=== PATIENT | male | born 1985 | race African-American/Black ===

== ENCOUNTER 2018-04-20 17:28 | Emergency (ER) | payer SELFPAY, OTHER ==
[~2018-04-20] VITALS: Ht 180.3 cm; Wt 93.0 kg
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
[2018-04-20 17:40] VITALS: BP 124/68
[2018-04-20] MEDS ORDERED: LORazepam 1mg tab ORAL ONE (18:00)
[2018-04-20] MEDS ORDERED: IBUPROFEN200 MG ORAL (19:25)
[2018-04-20 19:30] VITALS: BP 124/68
--- NOTE | 2018-04-21 10:22 | Diagnostic Imaging Report ---
Indication: Headache Technique: Contiguous 5 mm thick transaxial imaging of the head obtained in a Siemens Sensation [address] scanner. Soft tissue and bone windows generated. Automatic Exposure Control was utilized. Total Dose length Product (DLP): 1986.[address] Dose Index Volume (CTDIvol): 70.38,28.19 mGy Comparison: none Findings: The size and configuration of the cortical sulci, basal cisterns, and ventricles are within normal limits for age. There is no mass effect, midline shift, or edema identified. There is no evidence of acute hemorrhage or abnormal intra-axial or extra-axial fluid collections. The bones and soft tissues are unremarkable. Impression: No mass effect, edema or acute bleed. Note: The study is degraded by motion which is considerable. [facility] has communicated the preliminary results to the Emergency Department. Their findings are largely concordant with this report. The CT scanner at [facility] is accredited by the [employer] and the scans are performed using dose optimization techniques as appropriate to a performed exam including Automatic Exposure control.
--- NOTE | 2018-04-21 10:30 | Diagnostic Imaging Report ---
Indication: Trauma. Facial pain Technique: Continuous helical transaxial imaging of the maxillofacial structures obtained without intravenous contrast administration. Coronal 2-D reformats were also obtained. Study obtained in a Siemens sensation [address] Automatic Exposure Control was utilized. Total Dose length Product (DLP): 1986.[address] Dose Index Volume (CTDIvol): 70.38,28.19 mGy Comparison: None Findings: No acute fractures identified. There is right periorbital soft tissue swelling demonstrated. The orbits appear normal and symmetric. Paranasal sinuses are clear. TMJs and mastoids are unremarkable. IMPRESSION: Soft tissue contusion involving the right periorbital region. No acute fracture identified. [facility] has communicated the preliminary results to the Emergency Department. Their findings are largely concordant with this report. The CT scanner at [facility] is accredited by the [employer] and the scans are performed using dose optimization techniques as appropriate to a performed exam including Automatic Exposure control.
== END 2018-04-20 19:30 ==
LOC: EMR 17:41
DX: S00.83XA Contusion of other part of head, initial encounter (principal); X58.XXXA Exposure to other specified factors, initial encounter; Y93.9 Activity, unspecified; Y92.9 Unspecified place or not applicable; Z72.89 Other problems related to lifestyle; F31.9 Bipolar disorder, unspecified; F41.9 Anxiety disorder, unspecified
CPT/HCPCS: 70450; 70486; 99284